=== PATIENT | male | born 1990 | race Caucasian/White ===

== ENCOUNTER 2021-06-22 09:25 | Outpatient (RCR) | payer BC, SELFPAY ==
[2021-06-22 10:07] VITALS: BP 120/69; PULSE 92; RESP 16; TEMP 36.6; O2SAT 100
[2021-06-22] MEDS: diphenhydrAMINE HCl CAP 25 MG CAPSULE PO (10:09)
[2021-06-22] MEDS: ACETAMINOPHEN 325 MG TABLET 650 MG PO (10:09)
[2021-06-22] MEDS: FAMOTIDINE 20 MG TABLET PO (10:09)
--- NOTE | 2021-06-22 10:47 | PC.NURSE ---
Patient received both [employer] vaccines in January 2021.
[2021-06-22 11:49] VITALS: BP 119/75; PULSE 84; RESP 16; TEMP 36.4; O2SAT 100
--- NOTE | 2021-06-25 10:27 | PC.NURSE ---
Attempted to follow-up with patient regarding COVID antibody infusion on 06/22/2021 but patient did not answer. No voicemail set up at this time.
--- NOTE | 2021-06-25 11:06 | PC.NURSE ---
Patient returned call regarding COVID antibody infusion on 06/22/2021 and states they are feeling well.
== END 2021-06-22 16:30 | disposition home or self-care (01) ==
LOC: AMCINF 09:25
PROVIDERS: PCP Family Medicine; Referring Provider Family Medicine; Visit Provider Internal Medicine Hematology & Oncology
DX: Z23 Encounter for immunization (principal); U07.1 COVID-19
CPT/HCPCS: A9270; J7050; M0243